=== PATIENT | female | born 1955 | race Caucasian/White ===

== ENCOUNTER 2018-08-27 15:50 | Inpatient (IN) | payer BC ==
[~2018-08-27] VITALS: Ht 172.7 cm; Wt 61.0 kg
[2018-08-27] MEDS ORDERED: clindamycin phosphate 150mg/ml inj. IM ONE (16:40)
[2018-08-27] MEDS ORDERED: TETanus/Pertussis (Acell)/Diphther VAC/PF (Tdap-Adult) 0.5ml syringe IMVAC ONE (16:45)
[2018-08-27] MEDS ORDERED: piperacillin/tazo 3.375gm/50ml 50 ML IV ONE (17:40)
[2018-08-27] MEDS ORDERED: TRAM50TA2 PO (18:12)
[2018-08-27] MEDS ORDERED: META-25 PO (18:12)
[2018-08-27] MEDS ORDERED: IBUP-1984 PO (18:12)
[2018-08-27 18:28] LABS: BASOPHILS % (AUTO) 0.1 % (0-1); EOSINOPHILS # (AUTO) 0.1 X10'3 (0-0.9); EOSINOPHILS % (AUTO) 1.6 % (0-6); HEMATOCRIT 37.5 % (35.0-45.0); HEMOGLOBIN 12.6 g/dl (12.0-16.0); LYMPHOCYTES # (AUTO) 0.8 X10'3 (1.1-4.8); LYMPHOCYTES % (AUTO) 10.7 % (21-51); MEAN CORPUSCULAR HEMOGLOBIN 32.1 PG (27.0-31.0); MEAN CORPUSCULAR HGB CONC 33.5 % (33.0-36.5); MEAN CORPUSCULAR VOLUME 95.8 FL (78-98); MONOCYTES # (AUTO) 0.7 X10'3 (0-0.9); MONOCYTES % (AUTO) 9.2 % (2-12); NEUTROPHILS # (AUTO) 6.2 X10'3 (1.8-7.7); NEUTROPHILS % (AUTO) 78.4 % (42-75); PLATELET COUNT 233 X10'3 (140-440); RED BLOOD COUNT 3.92 X10'6 (4.20-5.60); RED CELL DISTRIBUTION WIDTH 13.7 % (11.5-14.5); WHITE BLOOD COUNT 7.9 X10'3 (4.5-11.0)
[2018-08-27] MEDS ORDERED: HYDROcodone/acetaminophen 5mg/325mg tablet PO ONE (18:40)
[2018-08-27 18:43] LABS: ANION GAP 11 (8-16); BLOOD UREA NITROGEN 11 MG/DL (7-18); BUN/CREATININE RATIO 16.2 (6.6-38.0); C-REACTIVE PROTEIN 2.36 MG/DL (0.0-0.5); CALCIUM 8.6 MG/DL (8.5-10.1); CHLORIDE 97 MMOL/L (99-107); CREATININE 0.68 MG/DL (0.40-0.90); GLUCOSE 103 MG/DL (70-104); POTASSIUM 3.6 MMOL/L (3.5-5.1); SODIUM 133 MMOL/L (135-145); eGFR 88 ML/MIN
[2018-08-27] MEDS ORDERED: HYDROmorphone 1 mg/ml syringe IV PRN (19:35)
[2018-08-27] MEDS: piperacillin/tazo 3.375gm/50ml 50 ML IV SCH (19:52)
[2018-08-27] MEDS: normal saline 1000ml 1,000 ML IV SCH (19:52)
[2018-08-27] MEDS ORDERED: HYDROmorphone 1 mg/ml syringe IV ONE (23:05)
[2018-08-28] MEDS: ondansetron/PF 4mg/2ml inj IV PRN ×4 (00:01→22:55)
[2018-08-28] MEDS: piperacillin/tazo 3.375gm/50ml 50 ML IV SCH ×4 (02:06→20:27)
[2018-08-28] MEDS: HYDROmorphone 1 mg/ml syringe IV PRN ×4 (05:23→22:56)
[2018-08-28] MEDS: normal saline 1000ml 1,000 ML IV SCH ×3 (05:35→17:58)
[2018-08-28 08:05] VITALS: BP 117/54
[2018-08-28 09:14] LABS: BASOPHILS % (AUTO) 0.2 % (0-1); EOSINOPHILS # (AUTO) 0.1 X10'3 (0-0.9); EOSINOPHILS % (AUTO) 1.3 % (0-6); HEMATOCRIT 33.2 % (35.0-45.0); HEMOGLOBIN 11.1 g/dl (12.0-16.0); LYMPHOCYTES # (AUTO) 0.9 X10'3 (1.1-4.8); LYMPHOCYTES % (AUTO) 16.4 % (21-51); MEAN CORPUSCULAR HEMOGLOBIN 31.9 PG (27.0-31.0); MEAN CORPUSCULAR HGB CONC 33.3 % (33.0-36.5); MEAN CORPUSCULAR VOLUME 95.9 FL (78-98); MEAN PLATELET VOLUME 8.6 FL (7.4-10.4); MONOCYTES # (AUTO) 0.5 X10'3 (0-0.9); MONOCYTES % (AUTO) 9.8 % (2-12); NEUTROPHILS # (AUTO) 3.8 X10'3 (1.8-7.7); NEUTROPHILS % (AUTO) 72.3 % (42-75); PLATELET COUNT 181 X10'3 (140-440); RED BLOOD COUNT 3.47 X10'6 (4.20-5.60); RED CELL DISTRIBUTION WIDTH 13.3 % (11.5-14.5); WHITE BLOOD COUNT 5.3 X10'3 (4.5-11.0)
[2018-08-28 09:38] LABS: ALANINE AMINOTRANSFERASE 12 U/L (12-78); ALBUMIN 3.1 G/DL (3.4-5.0); ALBUMIN/GLOBULIN RATIO 1.1 (1.1-1.5); ALKALINE PHOSPHATASE 53 IU/L (46-116); ANION GAP 10 (8-16); ASPARTATE AMINO TRANSFERASE 12 U/L (10-37); BILIRUBIN,TOTAL 0.4 MG/DL (0.1-1.0); BLOOD UREA NITROGEN 6 MG/DL (7-18); BUN/CREATININE RATIO 9.1 (6.6-38.0); CALCIUM 8.1 MG/DL (8.5-10.1); CHLORIDE 103 MMOL/L (99-107); CREATININE 0.66 MG/DL (0.40-0.90); GLUCOSE 99 MG/DL (70-104); POTASSIUM 3.8 MMOL/L (3.5-5.1); SODIUM 137 MMOL/L (135-145); TOTAL CARBON DIOXIDE 24.4 MMOL/L (24-32); TOTAL PROTEIN 5.8 G/DL (6.4-8.2); eGFR > 90 ML/MIN
[2018-08-28 12:47] VITALS: BP 106/47
[2018-08-28] MEDS ORDERED: ringers solution, lacted 1,000 ML IV ONE (13:02)
[2018-08-28] MEDS ORDERED: mag hydrox/Alum hydrox/simeth 30ml oral suspension PO PRN (18:30)
[2018-08-28 19:00] VITALS: BP 111/55
[2018-08-28] MEDS: lactobacillus rhamnosus 10,000 MMU CELLS/CAPSULE PO SCH (20:27)
[2018-08-29] VITALS (18 sets, daily range): BP systolic 107–140; BP diastolic 57–83
[2018-08-29] MEDS: piperacillin/tazo 3.375gm/50ml 50 ML IV SCH ×4 (01:56→19:02)
[2018-08-29 05:28] LABS: BASOPHILS % (AUTO) 0.3 % (0-1); EOSINOPHILS # (AUTO) 0.1 X10'3 (0-0.9); EOSINOPHILS % (AUTO) 2.7 % (0-6); HEMATOCRIT 31.8 % (35.0-45.0); HEMOGLOBIN 10.5 g/dl (12.0-16.0); LYMPHOCYTES # (AUTO) 1.1 X10'3 (1.1-4.8); LYMPHOCYTES % (AUTO) 25.6 % (21-51); MEAN CORPUSCULAR HEMOGLOBIN 31.9 PG (27.0-31.0); MEAN CORPUSCULAR VOLUME 96.8 FL (78-98); MEAN PLATELET VOLUME 8.7 FL (7.4-10.4); MONOCYTES # (AUTO) 0.4 X10'3 (0-0.9); MONOCYTES % (AUTO) 9.4 % (2-12); NEUTROPHILS # (AUTO) 2.8 X10'3 (1.8-7.7); PLATELET COUNT 191 X10'3 (140-440); RED BLOOD COUNT 3.28 X10'6 (4.20-5.60); RED CELL DISTRIBUTION WIDTH 13.3 % (11.5-14.5); WHITE BLOOD COUNT 4.5 X10'3 (4.5-11.0)
[2018-08-29] MEDS: normal saline 1000ml 1,000 ML IV SCH ×2 (05:29→19:02)
[2018-08-29 05:30] LABS: PARTIAL THROMBOPLASTIN TIME 30 SECONDS (22-32); PROTHROMBIN TIME 10.2 SECONDS (9.0-12.0)
[2018-08-29] MEDS: HYDROmorphone 1 mg/ml syringe IV PRN (05:30)
[2018-08-29] MEDS: ondansetron/PF 4mg/2ml inj IV PRN (05:35)
[2018-08-29 05:38] LABS: ALANINE AMINOTRANSFERASE 11 U/L (12-78); ALBUMIN 2.8 G/DL (3.4-5.0); ALKALINE PHOSPHATASE 50 IU/L (46-116); ANION GAP 9 (8-16); ASPARTATE AMINO TRANSFERASE 11 U/L (10-37); BILIRUBIN,TOTAL 0.6 MG/DL (0.1-1.0); BLOOD UREA NITROGEN 5 MG/DL (7-18); BUN/CREATININE RATIO 6.3 (6.6-38.0); CALCIUM 8.1 MG/DL (8.5-10.1); CHLORIDE 104 MMOL/L (99-107); CREATININE 0.79 MG/DL (0.40-0.90); GLUCOSE 97 MG/DL (70-104); POTASSIUM 3.8 MMOL/L (3.5-5.1); SODIUM 139 MMOL/L (135-145); TOTAL CARBON DIOXIDE 25.6 MMOL/L (24-32); TOTAL PROTEIN 5.7 G/DL (6.4-8.2); eGFR 74 ML/MIN
[2018-08-29] MEDS ORDERED: famotidine 20mg tablet PO ONE (06:00)
[2018-08-29] MEDS: lactobacillus rhamnosus 10,000 MMU CELLS/CAPSULE PO SCH ×2 (07:08→19:02)
[2018-08-29] MEDS ORDERED: sevoflurane 250ml liquid IH ONE (08:38)
[2018-08-29] MEDS ORDERED: LIDOcaine 2% (20mg/ml) 5ml vial ONE (08:39)
[2018-08-29] MEDS ORDERED: propofol inj 20 ML IV ONE (08:39)
[2018-08-29] MEDS ORDERED: morphine 10mg/ml inj. ONE (08:39)
[2018-08-29] MEDS ORDERED: dexamethasone sod phosphate 4mg/ml inj. ONE (08:40)
[2018-08-29] MEDS ORDERED: ondansetron/PF 4mg/2ml inj ONE (08:40)
[2018-08-29] MEDS ORDERED: ringers solution, lacted 1,000 ML IV SCH (09:27)
[2018-08-29] MEDS ORDERED: morphine 4 MG/ML inj SYRINge IV PRN (09:30)
[2018-08-29] MEDS ORDERED: hydrALAZINE 20mg/ml inj. IV PRN (09:30)
[2018-08-29] MEDS ORDERED: labetalol 20mg/4ml (5mg/ml) syringe IV PRN (09:30)
[2018-08-29] MEDS ORDERED: fentaNYL/PF 50MCG/1 ML 2ML syringe IV PRN ×2 (09:30)
[2018-08-29] MEDS ORDERED: ondansetron/PF 4mg/2ml inj IV PRN (09:30)
[2018-08-29] MEDS: morphine 4 MG/ML inj SYRINge IV PRN ×2 (09:51→10:32)
[2018-08-29] MEDS ORDERED: HYDROcodone/acetaminophen 5mg/325mg tablet PO PRN (21:10)
[2018-08-29] MEDS: HYDROcodone/acetaminophen 10/325mg tab PO PRN (21:15)
[2018-08-30] VITALS: BP 94/50
[2018-08-30] MEDS: piperacillin/tazo 3.375gm/50ml 50 ML IV SCH ×4 (01:14→20:50)
[2018-08-30] MEDS: normal saline 1000ml 1,000 ML IV SCH ×3 (04:01→19:22)
[2018-08-30 06:41] LABS: BASOPHILS % (AUTO) 0.5 % (0-1); EOSINOPHILS # (AUTO) 0.1 X10'3 (0-0.9); EOSINOPHILS % (AUTO) 1.6 % (0-6); HEMATOCRIT 30.2 % (35.0-45.0); HEMOGLOBIN 10.1 g/dl (12.0-16.0); LYMPHOCYTES # (AUTO) 1.2 X10'3 (1.1-4.8); LYMPHOCYTES % (AUTO) 24.1 % (21-51); MEAN CORPUSCULAR HEMOGLOBIN 32.5 PG (27.0-31.0); MEAN CORPUSCULAR HGB CONC 33.4 % (33.0-36.5); MEAN CORPUSCULAR VOLUME 97.1 FL (78-98); MEAN PLATELET VOLUME 9.1 FL (7.4-10.4); MONOCYTES # (AUTO) 0.4 X10'3 (0-0.9); MONOCYTES % (AUTO) 8.4 % (2-12); NEUTROPHILS # (AUTO) 3.2 X10'3 (1.8-7.7); NEUTROPHILS % (AUTO) 65.4 % (42-75); PLATELET COUNT 196 X10'3 (140-440); RED BLOOD COUNT 3.11 X10'6 (4.20-5.60); RED CELL DISTRIBUTION WIDTH 13.3 % (11.5-14.5); WHITE BLOOD COUNT 4.8 X10'3 (4.5-11.0)
[2018-08-30 07:00] VITALS: BP 107/56
[2018-08-30 07:03] LABS: ALANINE AMINOTRANSFERASE 12 U/L (12-78); ALBUMIN 2.6 G/DL (3.4-5.0); ALBUMIN/GLOBULIN RATIO 0.9 (1.1-1.5); ALKALINE PHOSPHATASE 39 IU/L (46-116); ANION GAP 8 (8-16); ASPARTATE AMINO TRANSFERASE 9 U/L (10-37); BILIRUBIN,TOTAL 0.4 MG/DL (0.1-1.0); BLOOD UREA NITROGEN 6 MG/DL (7-18); BUN/CREATININE RATIO 8.7 (6.6-38.0); CALCIUM 7.8 MG/DL (8.5-10.1); CHLORIDE 106 MMOL/L (99-107); CREATININE 0.69 MG/DL (0.40-0.90); GLUCOSE 95 MG/DL (70-104); POTASSIUM 3.5 MMOL/L (3.5-5.1); SODIUM 139 MMOL/L (135-145); TOTAL CARBON DIOXIDE 25.3 MMOL/L (24-32); TOTAL PROTEIN 5.5 G/DL (6.4-8.2); eGFR 86 ML/MIN
[2018-08-30] MEDS: HYDROcodone/acetaminophen 10/325mg tab PO PRN ×3 (08:22→19:12)
[2018-08-30] MEDS: lactobacillus rhamnosus 10,000 MMU CELLS/CAPSULE PO SCH ×2 (08:23→20:49)
[2018-08-30 20:00] VITALS: BP 132/58
[2018-08-30] MEDS: ondansetron/PF 4mg/2ml inj IV PRN (20:58)
[2018-08-30] MEDS: HYDROmorphone 1 mg/ml syringe IV PRN (21:02)
[2018-08-31] VITALS: BP 114/59
[2018-08-31] MEDS: piperacillin/tazo 3.375gm/50ml 50 ML IV SCH ×2 (01:50→08:02)
[2018-08-31] MEDS: HYDROcodone/acetaminophen 10/325mg tab PO PRN ×3 (01:50→13:46)
[2018-08-31 05:35] LABS: BASOPHILS % (AUTO) 0.4 % (0-1); EOSINOPHILS # (AUTO) 0.1 X10'3 (0-0.9); EOSINOPHILS % (AUTO) 3.7 % (0-6); HEMATOCRIT 30.1 % (35.0-45.0); HEMOGLOBIN 9.9 g/dl (12.0-16.0); LYMPHOCYTES # (AUTO) 1.5 X10'3 (1.1-4.8); LYMPHOCYTES % (AUTO) 39.4 % (21-51); MEAN PLATELET VOLUME 8.5 FL (7.4-10.4); MONOCYTES # (AUTO) 0.2 X10'3 (0-0.9); MONOCYTES % (AUTO) 6.3 % (2-12); NEUTROPHILS % (AUTO) 50.2 % (42-75); PLATELET COUNT 205 X10'3 (140-440); RED CELL DISTRIBUTION WIDTH 13.4 % (11.5-14.5); WHITE BLOOD COUNT 3.9 X10'3 (4.5-11.0)
[2018-08-31 05:45] LABS: ALANINE AMINOTRANSFERASE 14 U/L (12-78); ALBUMIN 2.5 G/DL (3.4-5.0); ALBUMIN/GLOBULIN RATIO 0.9 (1.1-1.5); ALKALINE PHOSPHATASE 39 IU/L (46-116); ANION GAP 7 (8-16); ASPARTATE AMINO TRANSFERASE 13 U/L (10-37); BILIRUBIN,TOTAL 0.2 MG/DL (0.1-1.0); BLOOD UREA NITROGEN 6 MG/DL (7-18); CALCIUM 8.3 MG/DL (8.5-10.1); CHLORIDE 108 MMOL/L (99-107); CREATININE 0.86 MG/DL (0.40-0.90); GLUCOSE 94 MG/DL (70-104); POTASSIUM 3.8 MMOL/L (3.5-5.1); SODIUM 142 MMOL/L (135-145); TOTAL CARBON DIOXIDE 26.8 MMOL/L (24-32); TOTAL PROTEIN 5.4 G/DL (6.4-8.2); eGFR 67 ML/MIN
[2018-08-31] MEDS: normal saline 1000ml 1,000 ML IV SCH (05:54)
[2018-08-31 08:00] VITALS: BP_SYST 121; BP_SYST 195; BP_DIAS 103; BP_DIAS 67
[2018-08-31] MEDS: lactobacillus rhamnosus 10,000 MMU CELLS/CAPSULE PO SCH (08:00)
[2018-08-31] MEDS ORDERED: AMOX-422 PO (12:32)
[2018-08-31] MEDS ORDERED: HYDR-4383 PO (12:33)
== END 2018-08-31 14:49 | disposition home or self-care (01) | DRG 513 ==
LOC: ER 15:51 → ED HOLD 19:35 → EDBEDREQ 08-28 06:51 → SUR 3N 08-28 08:06
PROVIDERS: ADMIT Internal Medicine; ATTEND Family Medicine
PROC: 3E0234Z Introduction of Serum, Toxoid and Vaccine into Muscle, Percutaneous Approach (ICD-10-PCS; 2018-08-27)
PROC: 0J9K0ZZ Drainage of Left Hand Subcutaneous Tissue and Fascia, Open Approach (ICD-10-PCS; 2018-08-29)
PROC: 0J9J0ZZ Drainage of Right Hand Subcutaneous Tissue and Fascia, Open Approach (ICD-10-PCS; principal; 2018-08-29 08:35)
DX: M65.841 Other synovitis and tenosynovitis, right hand (principal); L02.512 Cutaneous abscess of left hand; L02.511 Cutaneous abscess of right hand; G89.29 Other chronic pain; W55.01XA Bitten by cat, initial encounter; Y93.89 Activity, other specified; Y92.89 Other specified places as the place of occurrence of the external cause; Y99.8 Other external cause status
CPT/HCPCS: 96365; 96372; 99285; Z7506; 36415; 73140; 80048; 80053; 85025; 85610; 85651; 85730; 86140; 87070; 90471; 90715; 93005; A6222; A6449; A7000; G0378; J1100; J1170; J2001; J2270; J2405; J2543; J2704; J3010; J3490; J7030; J7120